=== PATIENT | female | born 1990 | race Caucasian/White ===

== ENCOUNTER 2021-08-28 14:00 | Inpatient (IN) | payer OTHER ==
[~2021-08-28] VITALS: Ht 171.4 cm; Wt 68.7 kg
[2021-08-28] MEDS ORDERED: LORAZEPAM 2 MG/1 ML VIAL IV ONE (14:15)
[2021-08-28] MEDS ORDERED: IV NORMAL SALINE 1000 ML BAG IV ONE ×2 (14:15→15:45)
[2021-08-28] MEDS ORDERED: METOCLOPRAMIDE HCL 10 MG/2 ML VIAL IV ONE (14:15)
--- NOTE | 2021-08-28 14:30 | NUR ---
midline gauge 18 placed by midline rn on right fa.
[2021-08-28] MEDS ORDERED: METOCLOPRAMIDE HCL 10 MG/2 ML VIAL ONE (14:37)
[2021-08-28] MEDS ORDERED: LORAZEPAM 2 MG/1 ML VIAL ONE (14:39)
[2021-08-28 14:43] LABS: HEMATOCRIT 34.2 % (31.2-41.9); MEAN CORPUSCULAR HEMOGLOBIN 27.6 uug (24.7-32.8); MEAN CORPUSCULAR VOLUME 83.6 fL (75.5-95.3); PLATELET COUNT (AUTO) 323 K/uL (179-408)
[2021-08-28 14:53] LABS: CARBON DIOXIDE 19 mmol/L (21-32); CHLORIDE 98 mmol/L (98-107); GLUCOSE 213 mg/dL (74-106); POTASSIUM 3.8 mmol/L (3.5-5.1); UREA NITROGEN, BLOOD 11 mg/dL (7-18)
[2021-08-28 14:57] LABS: ETHANOL < 3 MG/DL (0-0)
[2021-08-28 14:59] LABS: ALANINE AMINOTRANSFERASE 23 U/L (14-59); ALKALINE PHOSPHATASE 81 U/L (50-136); ASPARTATE AMINOTRANSFERASE 25 U/L (15-37); BILIRUBIN,DIRECT 0.1 mg/dL (0.0-0.2); BILIRUBIN,TOTAL 0.7 mg/dL (0.2-1.0); LIPASE 44 U/L (73-393); TOTAL PROTEIN, SERUM 8.1 g/dL (6.4-8.2)
[2021-08-28 15:13] LABS: ABG BASE EXCESS -4.3 mmol/L; ABG HCO3 16.1 mmol/L; ABG PCO2 19.1 mmHg (35.0-45.0); ABG PH 7.544 (7.350-7.450); ABG PO2 94.3 mmHg (75.0-100.0); ABG SITE LEFT RADIAL; ABG TOTAL HEMOGLOBIN 11.9 G/dL (12.0-16.0); COHb 0.5 % (0.5-1.5); MetHb 0.1 % (0.0-1.5); O2Hb 97.4 % (94.0-97.0); VENT MODE room air
[2021-08-28] MEDS ORDERED: diphenhydrAMINE 50 MG/1 ML VIAL IV ONE (15:45)
[2021-08-28] MEDS ORDERED: PROCHLORPERAZINE EDISYLATE 10 MG/2 ML VIAL IV ONE (15:45)
[2021-08-28] MEDS ORDERED: diphenhydrAMINE 50 MG/1 ML VIAL ONE (15:56)
[2021-08-28] MEDS ORDERED: PROCHLORPERAZINE EDISYLATE 10 MG/2 ML VIAL ONE (15:57)
--- NOTE | 2021-08-28 16:22 | NUR ---
pt ambulated to bathroom with assisstance, urine sample sent to lab
[2021-08-28 16:28] LABS: *BILIRUBIN,URIN NEGATIVE (NEGATIVE); *BLOOD, URINE 1+ (NEGATIVE); *CLARITY,URINE CLOUDY (CLEAR); *COLOR,URINE LIGHT YELLOW (YELLOW); *KETONES,URINE 4+ (NEGATIVE); *UROBILINOGEN,URINE 0.2 E.U./dl (NORMAL); LEUKOCYTE ESTERASE ,URINE 2+ (NEGATIVE); NITRITE, URINE POSITIVE (NEGATIVE); UGLUCOSE TRACE (NEGATIVE)
[2021-08-28 16:41] LABS: *AMPHETAMINE, URINE NEGATIVE (NEGATIVE); *CANNABINOID, URINE POSITIVE (NEGATIVE); *COCCAINE, URINE NEGATIVE (NEGATIVE); *OPIATE, URINE NEGATIVE (NEGATIVE); *PHENCYCLIDINE SCREEN,URINE NEGATIVE (NEGATIVE)
[2021-08-28] MEDS ORDERED: INSULIN REGULAR, HUMAN 100 UNITS in IV NORMAL SALINE 100 ML IV ONE (17:30)
[2021-08-28] MEDS ORDERED: CEFTRIAXONE 1 G in IV DEXTROSE 5% 50 ML IV ONE (17:30)
[2021-08-28] MEDS ORDERED: IV D5 1/2 NS 1000 ML 1,000 ML IV PRN (17:30)
[2021-08-28] MEDS ORDERED: CEFTRIAXONE /D5W 50ML IVPB **ER PYXIS IV ONE (17:35)
[2021-08-28 18:29] LABS: BACTERIA,URINE 20 /HPF (NONE SEEN); SQUAMOUS EPITHELIAL CELL,UR MANY /HPF (NONE SEEN); YEAST,URINE MANY /HPF (NONE SEEN)
[2021-08-28] MEDS ORDERED: IV D5W-0.45% NS +20 KCL 1,000 ML IV ONE ×2 (18:45→18:56)
[2021-08-28] MEDS ORDERED: INSULIN REGULAR, HUMAN 300 UNIT/3 ML VIAL IV ONE (18:45)
[2021-08-28] MEDS ORDERED: POTASSIUM CHLORIDE 20 MEQ TAB.PRT.SR PO ONE (18:45)
[2021-08-28] MEDS ORDERED: INSULIN REGULAR, HUMAN 300 UNIT/3 ML VIAL ONE (18:49)
[2021-08-28] MEDS ORDERED: POTASSIUM CHLORIDE 20 MEQ TAB.PRT.SR ONE (18:49)
--- NOTE | 2021-08-28 19:10 | NUR ---
Patient in room sleeping on gurny with no distress noted. Midline on right upper arm with IV infusion running. Patient noted to have insulin pump, which she was instructed to turn off.
[2021-08-28 19:11] LABS: CREATININE 0.9 mg/dL (0.6-1.3); POTASSIUM 3.7 mmol/L (3.5-5.1)
--- NOTE | 2021-08-28 19:35 | NUR ---
Insulin drip was not started. Dr Roger ordered not to started after re eval of labs.
--- NOTE | 2021-08-28 19:45 | NUR ---
Dr Roger spoke with Dr Yanez who agrees to admit patient to Tele.
[2021-08-28] MEDS ORDERED: ONDANSETRON 4 MG/2 ML VIAL IV PRN (20:00)
[2021-08-28] MEDS ORDERED: ACETAMINOPHEN 650 MG SUPP.RECT RC PRN (20:00)
[2021-08-28] MEDS ORDERED: LORAZEPAM 2 MG/1 ML VIAL IV PRN (20:00)
[2021-08-28] MEDS ORDERED: DEXTROSE 50% 50 ML DISP.SYRIN IV PRN (20:00)
[2021-08-28] MEDS ORDERED: MORPHINE SULFATE 2 MG/1 ML DISP.SYRIN IV PRN (20:00)
[2021-08-28] MEDS ORDERED: ACETAMINOPHEN 325 MG TABLET PO PRN (20:00)
[2021-08-28] MEDS ORDERED: METOCLOPRAMIDE HCL 10 MG/2 ML VIAL IV PRN (20:00)
--- NOTE | 2021-08-28 20:00 | NUR ---
Patient had [place] in her possession. Gave to [facility] su ([place]) who will store it until patient is discharge. Instructed patient to stop by [facility] after being d/c'ed to get back [place].
--- NOTE | 2021-08-28 21:10 | NUR ---
Admitted to Unit under telemetry. AAO x4, able to answer all questions.Tele is NSR. Denies any pain or discomfort at this time. NO nausea. On RA, no SOB. DX is Intractable vomiting and mild DKA. Patient states she was just hospitalized at [facility] last week for DKA. Right upper arm midline is intact and patent. Call light within reach.
--- NOTE | 2021-08-28 21:10 | NUR ---
Transfered to 3rd floor Tele with no distress.
[2021-08-28 21:37] VITALS: BP 128/69
[2021-08-28] MEDS: INSULIN REGULAR, HUMAN 300 UNITS/3 ML VIAL SQ PRN (22:34)
[2021-08-28] MEDS: BLOOD SUGAR DIAGNOSTIC 1 EACH STRIP VI SCH (22:43)
[2021-08-28] MEDS: IV D5W-0.45% NS +20 KCL 1,000 ML IV PRN (23:01)
[2021-08-29 00:10] VITALS: BP 147/79
[2021-08-29 04:03] VITALS: BP 100/50
--- NOTE | 2021-08-29 05:56 | NUR ---
Slept well, in no acute distress. One episode of feeling nauseous, relieved momentarily- no needs for antiemetic. No episodes of vomiting. On Telemetry, NSR HR 70. Is easily woken, Infusing D5 1/2 Ns with 20 meq of KCL at 100ml/hr. Call light within reach.
[2021-08-29] MEDS: BLOOD SUGAR DIAGNOSTIC 1 EACH STRIP VI SCH ×3 (06:35→17:44)
--- NOTE | 2021-08-29 07:30 | NUR ---
RECEIVED PATIENT LAYING IN BED IN NO APPARENT DISTRESS, PATIENT IS ALERT AND ORIENTED X4 AND ABLE TO MAKE NEEDS KNOWN. CURRENTLY WITH MIDLINE TO RIGHT UPPER ARM IN PLACE AND PATENT INFUSION D5 1/2 NS WITH 20MEQ KCL AT 100CC AND TOLERATING WELL. PT CURRENTLY ON CLEAR LIQUID DIET. DENIES ANY PAIN OR DISCOMFORT AT THIS TIME. REMINDED TO USE CALL LIGHT FOR ASSISTANCE, CALL LIGHT WITHIN REACH.
[2021-08-29] MEDS: INSULIN REGULAR, HUMAN 300 UNIT/3 ML VIAL SQ PRN ×2 (08:39→12:07)
[2021-08-29] MEDS: IV D5W-0.45% NS +20 KCL 1,000 ML IV PRN (08:41)
[2021-08-29] MEDS ORDERED: PANTOPRAZOLE SODIUM 40 MG VIAL IV SCH (09:00)
[2021-08-29] MEDS ORDERED: FERR325T28 PO (11:16)
[2021-08-29 11:41] VITALS: BP 112/62
[2021-08-29 16:00] VITALS: BP 114/77
[2021-08-29 16:55] LABS: HEMATOCRIT 35.9 % (31.2-41.9); MEAN CORPUSCULAR HEMOGLOBIN 27.8 uug (24.7-32.8); MEAN CORPUSCULAR VOLUME 84.5 fL (75.5-95.3); PLATELET COUNT (AUTO) 290 K/uL (179-408)
[2021-08-29] MEDS ORDERED: CEFTRIAXONE 1 G in IV DEXTROSE 5% 50 ML IV SCH (17:00)
[2021-08-29 17:04] LABS: BILIRUBIN,TOTAL 0.5 mg/dL (0.2-1.0); CREATININE 0.9 mg/dL (0.6-1.3); PHOSPHOROUS 3.1 mg/dL (2.5-4.9); POTASSIUM 3.5 mmol/L (3.5-5.1); TOTAL PROTEIN, SERUM 7.4 g/dL (6.4-8.2)
[2021-08-29] MEDS ORDERED: LEVO500T90 PO (17:30)
[2021-08-29] MEDS ORDERED: FAMO-132 PO (17:30)
[2021-08-29] MEDS: INSULIN REGULAR, HUMAN 300 UNITS/3 ML VIAL SQ PRN (17:44)
--- NOTE | 2021-08-29 18:00 | NUR ---
new discharge order, all discharge paperwork reviewed with patient, patient states understanding. belongings inventory completed, all belongings present, contraband items (luisito sin returned to patient. ) reminded patient to continue with current mediation regimen and new medication regimen as well. reminded patient to go to nearest ER or call 911 if symptoms worsen, patient states understanding.
--- NOTE | 2021-08-29 18:15 | NUR ---
midline removed, minimal bleeding noted, pressure applied. v/s wnl at this moment.
--- NOTE | 2021-08-29 18:45 | NUR ---
patient ambulated downstairs to car safely, all belongings with patient.
== END 2021-08-29 18:45 | disposition home or self-care (01) | DRG 638 ==
LOC: ER 14:00 → TRANSITION 17:38 → TELE3 20:48
PROVIDERS: ADMIT Internal Medicine; ATTEND Internal Medicine
PROC: 05H533Z Insertion of Infusion Device into Right Subclavian Vein, Percutaneous Approach (ICD-10-PCS; principal; 2021-08-28)
PROC: B546ZZA Ultrasonography of Right Subclavian Vein, Guidance (ICD-10-PCS; 2021-08-28)
DX: E10.10 Type 1 diabetes mellitus with ketoacidosis without coma (principal); N39.0 Urinary tract infection, site not specified; F12.90 Cannabis use, unspecified, uncomplicated; F41.9 Anxiety disorder, unspecified; Z20.822 Contact with and (suspected) exposure to COVID-19; Z79.4 Long term (current) use of insulin; F32.A Depression, unspecified; E10.43 Type 1 diabetes mellitus with diabetic autonomic (poly)neuropathy; K31.84 Gastroparesis; B96.20 Unspecified Escherichia coli [E. coli] as the cause of diseases classified elsewhere
CPT/HCPCS: 36415; 36600; 71045; 83690; 84100; 85025; 87077; 87086; 93005; A4663; C9113; G0378; G0480; J0696; J0780; J1200; J1815; J2060; J2765; J3490; J7030; J7050; J7060